=== PATIENT | female | born 1995 | race Caucasian/White ===

== ENCOUNTER 2019-08-19 11:04 | Emergency (ER) | payer BC ==
[~2019-08-19] VITALS: Ht 160 cm; Wt 85.0 kg
[2019-08-19 11:50] VITALS: BP 119/63
[2019-08-19 12:16] LABS: BILIRUBIN,URINE NEGATIVE (NEG); CLARITY,URINE CLEAR; COLOR,URINE YELLOW; NITRITE,URINE NEGATIVE (NEG); PROTEIN,URINE NEGATIVE (NEG-TRACE); UROBILINOGEN,URINE 0.2 mg/dL (0.2 mg/dL)
[2019-08-19 12:29] LABS: SQUAMOUS EPITHELIAL CELL,UR MANY /LPF
[2019-08-19 12:30] LABS: BACTERIA,URINE MODERATE /HPF (0-FEW)
[2019-08-19] MEDS ORDERED: LIDOCAINE/EPI/TETRACAINE TOPICAL GEL 3 ML. TP ONE (13:15)
[2019-08-19] MEDS ORDERED: CEPH500C PO (13:30)
[2019-08-19] MEDS ORDERED: VALA10008 PO (13:30)
[2019-08-19] MEDS ORDERED: LIDO113G3 TP (13:30)
--- NOTE | 2019-08-19 13:31 | PHYS DOC ---
Past Medical History Past Medical History: No Pertinent History Past Surgical History: No Surgical History Smoking Status: Never Smoker Alcohol Use: None General Adult EDM: Chief Complaint: PAIN ON URINATION HPI: HPI: Patient is a 23 year old female who presents to the emergency department with complaints of dysuria and painful sores of her labia and near her vagina that began 2 days ago. Patient reports that her had a cold sore on his upper lip earlier this week and they did have oral intercourse. She denies any increased urinary frequency, hematuria, irregular vaginal discharge, vaginal odor, vaginal itching, pelvic pain, abdominal pain, fever, back pain, or foul- smelling urine. She reports that she has severe burning pain in her genital region with urination. She can only rates the discomfort a 7 out of 10 on the pain scale, she denies any alleviating factors,. Review of Systems: Review of Systems: Constitutional: Denies fever or chills. [] HENT: Denies nasal congestion or sore throat. [] Respiratory: Denies cough or shortness of breath. [] Cardiovascular: Denies chest pain or edema. [] GI: Denies abdominal pain, nausea, vomiting, or diarrhea. [] : See HPI Musculoskeletal: Denies back pain or joint pain. [] Integument: Denies rash. [] Neurologic: Denies headache, focal weakness or sensory changes. [] Psychiatric: Denies depression or anxiety. [] Heart Score: Risk Factors: Risk Factors: DM, Current or recent (<one month) smoker, HTN, HLP, family history of CAD, obesity. Risk Scores: Score 0 - 3: 2.5% MACE over next 6 weeks - Discharge Home Score 4 - 6: 20.3% MACE over next 6 weeks - Admit for Clinical Observation Score 7 - 10: 72.7% MACE over next 6 weeks - Early Invasive Strategies Physical Exam: PE: Constitutional: Well developed, well nourished, no acute distress, non-toxic appearance. HENT: Normocephalic, atraumatic, bilateral external ears normal, nose normal. Eyes: PERRLA, EOMI, conjunctiva normal, no discharge. Neck: Normal range of motion, no stridor. Cardiovascular: Heart rate regular rhythm Lungs & Thorax: Respirations even and unlabored, no retractions, no respiratory distress Pelvic Exam: Dermatology Technician present Abdomen: Nontender, soft External Genitalia: Several open ulcerated lesions consistent with herpes infection noted to labia minora and vaginal entrance bilaterally Speculum: Deferred Bimanual: Deferred Skin: Warm, dry, no erythema, no rash. Extremities: No cyanosis, ROM intact, no edema. Neurologic: Alert and oriented X 3, no focal deficits noted. Psychologic: Affect normal, judgement normal, mood normal. Current Patient Data: Labs: Laboratory Tests Test 08/19/19 11:35 Urine Collection Type Unknown Urine Color Yellow Urine Clarity Clear Urine pH 6.0 (<5.0-8.0) Urine Specific [place] 1.020 (1.000-1.030) Urine Protein Negative mg/dL (NEG-TRACE) Urine Glucose (UA) Negative mg/dL (NEG) Urine Ketones (Stick) Negative mg/dL (NEG) Urine Blood Negative (NEG) Urine Nitrite Negative (NEG) Urine Bilirubin Negative (NEG) Urine Urobilinogen Dipstick 0.2 mg/dL (0.2 mg/dL) Urine Leukocyte Esterase Small (NEG) Urine RBC 1-2 /HPF (0-2) Urine WBC 11-20 /HPF (0-4) Urine Squamous Epithelial Cells Many /LPF Urine Bacteria Moderate /HPF (0-FEW) Urine Mucus Marked /LPF Vital Signs: Vital Signs Date Time Temp Pulse Resp B/P (MAP) Pulse Ox O2 Delivery O2 Flow Rate FiO2 08/19/19 11:50 98.1 65 18 119/63 (81) 95 Room Air 98.1 EKG: EKG: [] Radiology/Procedures: Radiology/Procedures: [] Course & Med Decision Making: Course & Med Decision Making Pertinent Labs and Imaging studies reviewed. (See chart for details) Patient is a 23-year-old female who presented to the emergency room with complaints of sores in her vaginal area and dysuria that began 2 days ago. Exam is concerning for genital herpes, viral culture was collected. Patient's urinalysis was also concerning for a urinary tract infection with 11-20 white blood cells and many bacteria. Prescriptions were written for Keflex, valacyclovir, and lidocaine jelly. The patient was encouraged to follow-up with her [employer] to discuss future treatment of herpes and for reevaluation. Patient verbalized an understanding of home care, medications, follow-up, and return to ED instructions and was in agreement with the plan of care. [] [place] Disclaimer: Dragalysa Disclaimer: This electronic medical record was generated, in whole or in part, using a voice recognition dictation system. Departure Departure Impression: Primary Impression: Genital herpes Qualified Codes: A60.04 - Herpesviral vulvovaginitis Additional Impression: Urinary tract infection Qualified Codes: N30.00 - Acute cystitis without hematuria Disposition: HOME, SELF-CARE Condition: STABLE Referrals: UNKNOWN PCP NAME (PCP) Patient Instructions: Genital Herpes, Urinary Tract Infection, [id number] Additional Instructions: Fill prescription(s) and use as directed. Use a water bottle to dilute your urine as you urinate. Avoid bladder irritants such as caffeine, carbonation, and spicy foods. Increase clear fluids. Follow up with your primary care doctor or your [employer] for reevaluation next week, return to the ER if symptoms worsen. Scripts Valacyclovir Hcl (VALACYCLOVIR) 1,000 Mg Tablet 1 TAB PO BID for 10 Days, #20 TAB 0 Refills Prov: KIET FLOREZ APRN 08/19/19 Cephalexin (CEPHALEXIN) 500 Mg Capsule 1 CAP PO BID for 7 Days, #14 CAP 0 Refills Prov: KIET FLOREZ APRN 08/19/19 Lidocaine (TOPICAINE 5) 113 Gm Gel..gram. 1 MARGO TP 6XDAY PRN for PAIN for 3 Days, #1 BOTTLE 0 Refills Prov: KIET FLOREZ APRN 08/19/19 Justicifation of Admission Dx: Justifications for Admission: Justification of Admission Dx: N/A KIET FLOREZ APRN Aug 19, 2019 13:31
== END 2019-08-19 13:41 | disposition home or self-care (01) ==
LOC: ER 11:04
DX: A60.04 Herpesviral vulvovaginitis (principal); N30.00 Acute cystitis without hematuria; R30.0 Dysuria; B00.1 Herpesviral vesicular dermatitis
CPT/HCPCS: 81001; 87086; 87491; 87529; 87591; 99284